=== PATIENT | female | born 1975 | race Caucasian/White ===

== ENCOUNTER 2017-02-27 02:58 | Emergency (ER) | payer OTHER | END 2017-02-27 04:25 | disposition home or self-care (01) | LOC: ER 02:58 | DX: T78.40XA Allergy, unspecified, initial encounter (principal); F17.210 Nicotine dependence, cigarettes, uncomplicated; Z98.51 Tubal ligation status; Z88.8 Allergy status to other drugs, medicaments and biological substances | CPT/HCPCS: 96374; 96375; J1200 ==

== ENCOUNTER 2017-03-01 10:07 | Emergency (ER) | payer OTHER | END 2017-03-01 10:58 | disposition home or self-care (01) | LOC: ER 10:07 | DX: L50.9 Urticaria, unspecified (principal); F17.210 Nicotine dependence, cigarettes, uncomplicated; Z90.710 Acquired absence of both cervix and uterus; Z98.51 Tubal ligation status; Z88.8 Allergy status to other drugs, medicaments and biological substances | CPT/HCPCS: 96372; J1100 ==